=== PATIENT | male | born 1950 | race Caucasian/White ===

== ENCOUNTER 2016-12-16 06:59 | Emergency (ER) | payer BC ==
[~2016-12-16] VITALS: Ht 177.8 cm; Wt 72.0 kg
[2016-12-16] MEDS ORDERED: XYLOCAINE 1%/SOD BICARB 20 ML VIAL INFIL ONE (07:15)
[2016-12-16 07:17] VITALS: TEMP 36.3; Ht 177.8 cm; Wt 72.0 kg
[2016-12-16] MEDS ORDERED: CEFAZOLIN IV 1,000 MG in DEXTROSE 5% 50ML 50 ML IV ONE (08:00)
--- NOTE | 2016-12-16 08:00 | DIAGNOSTIC IMAGING REPORT ---
LEFT SECOND FINGER 3 VIEWS CLINICAL HISTORY: Laceration. FINDINGS: 3 views of the left second finger are obtained. No prior studies are available for comparison at the time of dictation. The skeletal structures are well mineralized. There is a large cutaneous defect at the level of the distal interphalangeal joint with associated soft tissue edema consistent with the history of laceration. There is fracture with fragmentation seen involving both the head of the second middle phalanx at the base of the second distal phalanx around the distal interphalangeal joint. There are small distracted bony fragments. The second metacarpophalangeal and proximal interphalangeal joints are well-maintained. IMPRESSION: There is a large cutaneous injury at the level of the second distal interphalangeal joint with fractures and fragmentation involving the head of the second proximal phalanx and the base of the second distal phalanx. Small distracted fragments are noted. Electronically signed by: Sukumar Aguilar M.D. 12/16/2016 7:58 AM Dictated Date/Time: 12/16/2016 7:56 AM
[2016-12-16] MEDS ORDERED: CEFAZOLIN SOD 1000MG/55 ML D5W IV ONE (08:06)
[2016-12-16] MEDS ORDERED: HYDR-5688 PO (08:06)
[2016-12-16] MEDS ORDERED: CEPH500C PO (08:06)
[2016-12-16 09:00] VITALS: BP 131/79; PULSE 48; O2SAT 97
--- NOTE | 2016-12-16 16:37 | EMERGENCY ROOM VISIT NOTE ---
ED Visit Note First contact with patient: 07:06 Chief complaint: Left index finger laceration HPI: This 66-year-old white male presents for evaluation of a laceration of his left index finger. The patient was using a table saw around 5 AM this morning and accidentally put the tip of his finger against the blade. He sustained a large laceration on the palmar surface of the tip. It is right at the DIP joint. Bleeding was controlled with pressure. They deny any numbness or tingling. He states he cannot flex the tip. No other complaints. Tetanus is believed to be up-to-date. Pain is 4/10. Right-hand dominant. No other fingers are involved. Supplemental sheet was reviewed. 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 No tobacco use. He is supposed to be at a conference in [place] tomorrow. REVIEW OF SYSTEM: HEENT: No dizziness, visual problems, hearing loss, or tinnitus. There is no difficulty swallowing and no oral lesions are present. LYMPH: No adenopathy. PULMONARY: No cough, shortness of breath, sputum production or hemoptysis. CARDIOVASCULAR: No chest pain, palpitations, shortness of breath or peripheral edema. GASTROINTESTINAL: No diarrhea, constipation, nausea, vomiting, or abdominal pain. GENITOURINARY: No dysuria, frequency, urgency or nocturia. NEUROLOGIC: No weakness, muscle tenderness, epilepsy or history of neurological problems. MUSCULOSKELETAL: No history of joint tenderness/swelling. No history of arthritis or arthralgias. SKIN: No rashes or lesions. PSYCHIATRIC: No history of depression or mental illness. ENDOCRINE: No history of diabetes, thyroid disorders, or abnormal hair growth. Physical Exam: Vitals: Reviewed and filed in patient's chart. Afebrile. General: Well-developed, well-nourished, middle-aged white male, in no acute distress. Obvious discomfort. He is sitting on the bed. Alert and oriented. Skin: Warm and dry with good turgor. No rashes. No ecchymosis or erythema. The patient is not diaphoretic. No abrasions. The patient has a 2.5 cm laceration present on the flexor surface of the left index finger. It is right at the DIP joint flexion crease. There is visible bone exposure. It does not penetrate the dorsal aspect of the finger. Musculoskeletal: Patient has no ability to flex the DIP joint. He can extend the index finger. There is intact flexion at the PIP joint. No other fingers are involved. No nail involvement. Neurologic: Gross sensation is intact across the left hand and digits by soft touch. Impression: Left index finger 2.5 cm laceration with open fracture of the middle phalanx and distal phalanx Procedure: Informed oral consent was obtained for repair. Left index finger was prepped with Betadine and draped with a sterile towel. Area was anesthetized using 4 mL 1% plain buffered lidocaine in a digital block. Finger tourniquet was applied. Thorough inspection was performed. Patient has violated the joint. He has removed the articular cartilage of the distal phalanx as well as the condylar end of the middle phalanx. Small bone fragments were removed using forceps. He has cut the flexor digitorum tendon. No other foreign material was visible in the wound. Wound was irrigated copiously using normal sterile saline under jet spray lavage. Wound was closed using 4-0 nylon. Good wound edge approximation was achieved. Hemostasis was achieved. Plan: Patient was educated regarding today's findings. Conservative care measures were discussed. He was placed in a pressure dressing and an AlumaFoam cage. This should remain in place at all times. Keep the bandage dry. Ice and elevate intermittently as needed for discomfort. Tylenol and ibuprofen every 6 hours as needed for mild pain. Prescription was given for [place] 5 mg to be used every 6 hours as needed for more severe pain. Driving precautions were given. I did speak with Dr. Arguello. He recommended that the patient call the office on Sunday for follow-up this week with Dr. Bejarano. Patient was made aware. Wound care handout was provided. He may shower but should avoid getting the bandage wet. He was given an IV dose of Ancef 1 g. Additional prescription for Keflex 500 mg 4 times a day was provided. Return to the ER for any acute changes or signs of infection. He understands that he will likely need to have the flexor tendon repaired and may need to fracture stabilized. Current/Historical Medications Scheduled Cephalexin Monohydrate (Keflex), 500 MG PO QID Scheduled PRN Hydrocodone/Acetaminophen 5MG/325MG ([place] 5MG/325MG), 1-2 TABLET PO Q6H PRN for Pain Allergies Coded Allergies: No Known Allergies (Unverified , 12/16/16) Vital Signs Date Time Temp Pulse Resp B/P Pulse Ox O2 Delivery O2 Flow Rate FiO2 12/16/16 09:00 48 16 131/79 97 12/16/16 08:14 67 18 107/67 98 Room Air 12/16/16 07:17 36.3 68 16 136/69 100 Room Air Medications Administered Medications (Trade) Dose Ordered Sig/Kayce Route Start Time Stop Time Status Last Admin Dose Admin Cefazolin Sodium (Ancef 1000mg/55 ml D5W) 1,000 mg STK-MED ONCE IV 12/16/16 08:06 12/16/16 08:09 DC 12/16/16 08:11 1,000 MG Departure Information Impression Primary Impression: Laceration of finger of left hand Additional Impression: Open fracture of phalanx of finger of left hand Dispostion Home / Self-Care Prescriptions Hydrocodone/Acetaminophen 5MG/325MG ([place] 5MG/325MG) Tab 1-2 TABLET PO Q6H Y for Pain, #18 TAB For Initial Treatment Prov: Joe Dumont,P.A. 12/16/16 Cephalexin Monohydrate (Keflex) 500 Mg Cap 500 MG PO QID for 5 Days, #20 CAP Prov: Joe Dumont,P.A. 12/16/16 Referrals Rahul Bejarano MD Forms HOME CARE DOCUMENTATION FORM, MOTRIN USE, TYLENOL USE, IMPORTANT VISIT INFORMATION Patient Instructions My [facility] Additional Instructions Call [place] [facility] on Sunday for follow-up this week Avoid swimming or soaking for 2 weeks you may shower and wash your hands but keep the finger dry Tylenol and Motrin every 6 hours as needed for discomfort Use [place] every 6 hours as needed for more severe pain-no driving Take Keflex one pill 4 times a day 5 days-start tonight with dinner Keep the splint on at all times for protection Return to the ED for any acute changes or signs of infection Problem Qualifiers
== END 2016-12-16 09:01 | disposition home or self-care (01) ==
LOC: C.EDB 07:00 → C.EDA 09:01
DX: S62.601B Fracture of unspecified phalanx of left index finger, initial encounter for open fracture (principal); W31.2XXA Contact with powered woodworking and forming machines, initial encounter